=== PATIENT | male | born 2000 | race Hispanic/Latino ===

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

== ENCOUNTER 2021-09-01 09:40 | Emergency (ER) | payer OTHER, SELFPAY | END 2021-09-01 10:36 | disposition home or self-care (01) | LOC: ERS 09:40 | DX: U07.1 COVID-19 (principal); J06.9 Acute upper respiratory infection, unspecified | CPT/HCPCS: 99283; U0003; U0005 ==

== ENCOUNTER 2023-04-15 09:57 | Emergency (ER) | payer SELFPAY ==
[2023-04-15 11:48] LABS: Influenza A by NAA Not Detected (NotDetected); Influenza B by NAA Not Detected (NotDetected); SARS-CoV-2 NAA Rapid Test Not Detected (NotDetected)
== END 2023-04-15 12:44 | disposition home or self-care (01) ==
LOC: ERS 09:57
DX: J06.9 Acute upper respiratory infection, unspecified (principal); Z55.0 Illiteracy and low-level literacy
CPT/HCPCS: 87081; 87430; 99283